=== PATIENT | male | born 1930 | race Two or more races ===

== ENCOUNTER 2016-12-27 06:13 | Emergency (ER) | payer MEDICARE, MEDICAID ==
[~2016-12-27] VITALS: Ht 177.8 cm; Wt 83.4 kg
[2016-12-27 06:23] VITALS: BP 152/69; PULSE 105; RESP 32; TEMP 99.9; O2SAT 99
[2016-12-27 07:01] VITALS: BP 103/65; PULSE 94; RESP 16; TEMP 102.7; O2SAT 97
[2016-12-27] MEDS ORDERED: SODIUM CHLOR 0.9% 1000 ML INJ 1,000 ML IV ONE (07:15)
[2016-12-27] MEDS ORDERED: IBUPROFEN 400 MG TAB PO ONE (07:15)
--- NOTE | 2016-12-27 07:19 | PD ---
HPI Chief Complaint: Cold / Flu Symptoms Time Seen by Provider: 07:02 Travel History International Travel<30 days: No Contact w/Intl Traveler<30days: [place] Traveled to: was in [place] at end of october Traveled to known affect area: No History of Present Illness HPI 86yo M with PMH of DM, Alzheimer's, HLD presents to the ED with c/o fever for 3 days. Pt returned from [place] Oct 28, 2016 and did not finish malaria prophylaxis. +Nonproductive cough today. Denies any chest pain, sob, n/v, abdominal pain, diarrhea, urinary complaints, headache, change in mental status , focal weakness or numbness. Pt's son is translating. PFSH Past Medical History Hx Anticoagulant Therapy: Yes (81 mg asa) High Cholesterol: Yes Diabetes: Yes (type 2) Patient Takes Glucophage: Yes Diminished Hearing: No Glaucoma: Yes Triglycerides - High: Yes Influenza Vaccination: No Social History Alcohol Use: No Tobacco Use: No (former) Substance Use: No Allergies-Medications (Allergen,Severity, Reaction): Coded Allergies: No Known Allergies (Unverified , 12/27/16) Reported Meds & Prescriptions Reported Meds & Active Scripts Active Acetaminophen 325 Mg Tab 325 Mg PO Q4-6H PRN 5 Days Ceftin (Cefuroxime Axetil) 500 Mg Tab 500 Mg PO BID 7 Days Reported Citracal Petites/Vitamin D (Calcium Citrate-Vitamin D) 200-250 Mg-Unit Tab 1 Tab PO BID Preservision Areds (Multiple Vitamins W/ Minerals) 1 Tab 1 Tab PO DAILY Aspirin 81 (Aspirin) 81 Mg Tabdr 81 Mg PO DAILY Vitamin B-12 (Cyanocobalamin) 1,000 Mcg Tab 1,000 Mcg PO DAILY Vitamin D (Cholecalciferol) 2,000 Unit Cap 2,000 Units PO DAILY Metformin (Metformin HCl) 500 Mg Tab 500 Mg PO BIDPC With meals Actos (Pioglitazone HCl) 30 Mg Tab 30 Mg PO DAILY Lipitor (Atorvastatin Calcium) 10 Mg Tab 10 Mg PO HS Dermotic Otic Drops (Fluocinolone Otic Drops) 0.01% Drops 1 Drop EACH EYE BID Dorzolamide-Timolol Opth Drops 22.3-6.8 Mg/Ml Soln 1 Drop EACH EYE BID Review of Systems Except as stated in HPI: all other systems reviewed are Neg Physical Exam Narrative GENERAL: 86yo M not in distress. SKIN: Warm and dry. HEAD: Atraumatic. Normocephalic. EYES: Pupils equal and round. No scleral icterus. No injection or drainage. ENT: Throat: Clear. TM wnl bilaterally. NECK: Trachea midline. No JVD. No nuchal rigidity. CARDIOVASCULAR: Regular rate and rhythm. No murmur appreciated. RESPIRATORY: No accessory muscle use. Clear to auscultation. Breath sounds equal bilaterally. GASTROINTESTINAL: Abdomen soft, non-tender, nondistended.No rebound tenderness or guarding. MUSCULOSKELETAL: No obvious deformities. No clubbing. No cyanosis. +Lower ext edema. NEUROLOGICAL: Awake and alert. No obvious cranial nerve deficits. Motor grossly within normal limits. Normal speech. Baseline mental status as per son. Data Data Last Documented VS Vital Signs Date Time Temp Pulse Resp B/P Pulse Ox O2 Delivery O2 Flow Rate FiO2 12/27/16 09:43 98.7 12/27/16 09:04 83 16 111/54 97 Room Air Orders Complete Blood Count With Diff (12/27/16 07:12) Basic Metabolic Panel (Bmp) (12/27/16 07:12) Prothrombin Time / Inr (Pt) (12/27/16 07:12) Act Partial Throm Time (Ptt) (12/27/16 07:12) Chest, Single Ap (12/27/16 ) Electrocardiogram (12/27/16 ) Urinalysis - C+S If Indicated (12/27/16 07:12) Influenzae A/B Antigen (12/27/16 07:12) Pathologist Smear Review (12/27/16 07:12) Blood Culture (12/27/16 07:12) Ibuprofen (Motrin) (12/27/16 07:15) Sodium Chlor 0.9% 1000 Ml Inj (Ns 1000 M (12/27/16 07:15) Lactic Acid Sepsis Protocol (12/27/16 07:39) Famotidine (Pepcid) (12/27/16 07:45) Malaria (12/27/16 08:06) Vancomycin Inj (Vancomycin Inj) (12/27/16 08:30) Piperacil-Tazo 3.375 Gm Premix (Zosyn 3. (12/27/16 08:30) Urine Culture (12/27/16 08:12) Ceftriaxone Inj (Rocephin Inj) (12/27/16 09:00) Labs Laboratory Tests Test 12/27/16 12/27/16 07:30 08:12 Prothrombin Time 11.1 SEC Prothromb Time International 1.0 RATIO Ratio Activated Partial 30.3 SEC Thromboplast Time Sodium Level 133 MEQ/L Potassium Level 4.1 MEQ/L Chloride Level 99 MEQ/L Carbon Dioxide Level 22.9 MEQ/L Anion Gap 11 MEQ/L Blood Urea Nitrogen 13 MG/DL Creatinine 1.10 MG/DL Estimat Glomerular Filtration 64 ML/MIN Rate Random Glucose 193 MG/DL Lactic Acid Level 2.3 mmol/L Calcium Level 8.2 MG/DL White Blood Count 11.3 TH/MM3 Red Blood Count 3.63 MIL/MM3 Hemoglobin 11.0 GM/DL Hematocrit 32.4 % Mean Corpuscular Volume 89.3 FL Mean Corpuscular Hemoglobin 30.3 PG Mean Corpuscular Hemoglobin 34.0 % Concent Red Cell Distribution Width 13.2 % Platelet Count 197 TH/MM3 Mean Platelet Volume 7.9 FL Neutrophils (%) (Auto) 91.3 % Lymphocytes (%) (Auto) 3.9 % Monocytes (%) (Auto) 4.1 % Eosinophils (%) (Auto) 0.4 % Basophils (%) (Auto) 0.3 % Neutrophils # (Auto) 10.4 TH/MM3 Lymphocytes # (Auto) 0.4 TH/MM3 Monocytes # (Auto) 0.5 TH/MM3 Eosinophils # (Auto) 0.0 TH/MM3 Basophils # (Auto) 0.0 TH/MM3 CBC Comment AUTO DIFF Differential Comment Blood Smear Pathologist Review Urine Collection Type CATH Urine Color YELLOW Urine Turbidity CLEAR Urine pH 6.0 Urine Specific [place] 1.011 Urine Protein 30 mg/dL Urine Glucose (UA) NEG mg/dL Urine Ketones NEG mg/dL Urine Occult Blood SMALL Urine Nitrite POS Urine Bilirubin NEG Urine Leukocyte Esterase MOD Urine RBC 0-3 /hpf Urine WBC 20-24 /hpf Urine Squamous Epithelial 0-5 /hpf Cells Urine Bacteria MOD /hpf Microscopic Urinalysis Comment CULTURE INDICATED Urine Collection Time 08:12 [facility] Medical Decision Making Medical Screen Exam Complete: Yes Emergency Medical Condition: Yes Interpretation(s) EKG: NSR 97bpm. LAD. Q wave III, aVF. TWI III. Differential Diagnosis Sepsis with no known source Pneumonia vs. UTI vs. malaria Narrative Course 86yo M with fever for 3 days. +Dry cough. Pt is febrile and tachycardic here, meets SIRS criteria. Pt has recently returned from [place] from mid October and did not finish course of malaria prophylaxis. No other complaints. Influenza negative. Pt given NS IVF. HR is now 80s. Pt is well appearing. No tenderness on abdominal exam. Labs reviewed, mild leukocytosis at 11.3. H/H mildly decreased at 11/32.4. Lactic acid mildly elevated at 2.3. BUN/ creatinine normal. Glucose 193. UA showed positive nitrite and moderate leukocyte. Initially ordered vanco, zosyn as empiric treatment for sepsis but it was not given and pt given ceftriaxone 1gm IV instead when UA came back positive. Advised pt for admission for urosepsis. However, pt refused to stay. Pt's son lives wiht him, is a physician and very reliable. He states that he will watch him and bring him back if any worsening symptoms. Pt will be given prescription for antibiotics and treat as outpatient since pt refused to be admitted. Strict return precautions given. Diagnosis Primary Impression: UTI (urinary tract infection) Qualified Code: N39.0 - Urinary tract infection with hematuria, site unspecified Patient Instructions: General Instructions Departure Forms: Tests/Procedures Additional Instructions: Please follow up with your PMD in 1-2 days. Return to the ED if symptoms worsen. Med/Other Pt SpecificInfo: Prescription(s) given Scripts Acetaminophen 325 Mg [id number] Mg PO Q4-6H PRN (FEVER) 5 Days Ref 0 Prov:Swetha Trinh DO 12/27/16 Cefuroxime (Ceftin)500 Mg [id number] Mg PO BID 7 Days Ref 0 Prov:Swetha Trinh DO 12/27/16 Disposition: 01 DISCHARGE HOME Condition: Stable Swetha Trinh DO Dec 27, 2016 07:19
[2016-12-27] MEDS ORDERED: DORZ2SOL15 EACH EYE (07:21)
[2016-12-27] MEDS ORDERED: VITA10002 PO (07:21)
[2016-12-27] MEDS ORDERED: CITRTAB8 PO (07:21)
[2016-12-27] MEDS ORDERED: VITA200013 PO (07:21)
[2016-12-27] MEDS ORDERED: ACTO30TA10 PO (07:21)
[2016-12-27] MEDS ORDERED: LIPI10TA PO (07:21)
[2016-12-27] MEDS ORDERED: METF500T PO (07:21)
[2016-12-27] MEDS ORDERED: ASPI-110 PO (07:21)
[2016-12-27] MEDS ORDERED: FLUO0.0124 EACH EYE (07:21)
[2016-12-27] MEDS ORDERED: OCUVTAB4 PO (07:21)
[2016-12-27 07:27] VITALS: BP 103/65; PULSE 94; RESP 16; TEMP 102.7; O2SAT 97
--- NOTE | 2016-12-27 07:33 | RADHPO ---
EXAM DATE/TIME: 12/27/2016 07:26 [facility] COMPARISON: No previous studies available for comparison. INDICATIONS : Fever, cough MEDICAL HISTORY : None. SURGICAL HISTORY : None. ENCOUNTER: Initial ACUITY: 2 days PAIN SCORE: 0/10 LOCATION: Bilateral chest FINDINGS: A single view of the chest demonstrates the lungs to be symmetrically aerated without evidence of mas s, infiltrate or effusion. The cardiomediastinal contours are unremarkable. Osseous structures are intact. Old healed right clavicle fracture. Degenerative changes of the thoracic spine. CONCLUSION: No acute intrathoracic disease. Peter Olvera MD on December 27, 2016 at 7:31 Board Certified Radiologist. This report was verified electronically.
[2016-12-27] MEDS ORDERED: FAMOTIDINE 20 MG TAB PO ONE (07:45)
[2016-12-27 07:49] LABS: AUTOMATED NEUTROPHIL # 10.4 TH/MM3 (1.8-7.7); BASOPHIL % 0.3 % (0.0-2.0); EOSINOPHIL % 0.4 % (0.0-4.0); HEMATOCRIT 32.4 % (39.0-51.0); LYMPH % 3.9 % (9.0-44.0); LYMPHOCYTE # 0.4 TH/MM3 (1.0-4.8); MEAN CELL VOLUME 89.3 FL (80.0-100.0); MEAN CORPUSCULAR HEMOGLOBIN 30.3 PG (27.0-34.0); MONO % 4.1 % (0.0-8.0); NEUT % 91.3 % (16.0-70.0); PLATELET COUNT 197 TH/MM3 (150-450); RED BLOOD COUNT 3.63 MIL/MM3 (4.50-5.90); RED CELL DISTRIBUTION WIDTH 13.2 % (11.6-17.2); WHITE BLOOD COUNT 11.3 TH/MM3 (4.0-11.0)
[2016-12-27 07:57] LABS: HEMO FLAGS AUTO DIFF
[2016-12-27 07:59] VITALS: BP 116/58; PULSE 93; RESP 16; O2SAT 97
[2016-12-27 08:01] LABS: POTASSIUM 4.1 MEQ/L (3.5-5.1)
[2016-12-27 08:04] LABS: BICARBONATE 22.9 MEQ/L (21.0-32.0)
[2016-12-27 08:05] LABS: APTT (PATIENT) 30.3 SEC (24.3-30.1); PROTHROMBIN TIME - PATIENT 11.1 SEC (9.8-11.6)
[2016-12-27 08:20] LABS: BLOOD, URINE SMALL (NEG); GLUCOSE,URINE NEG (NEG); KETONE, URINE NEG (NEG)
[2016-12-27 08:25] LABS: METHOD OF COLLECTION CATH; NITRITE,URINE POS (NEG); URINE COLOR YELLOW (YELLW/STRAW)
[2016-12-27 08:26] LABS: BACTERIA, URINE MOD /hpf; COMMENT (UR) CULTURE INDICATED; CULTURE IF INDICATED CULTURE INDICATED; RBC, URINE 0-3 /hpf (0-3); SQUAMOUS EPITHELIAL CELL URINE 0-5 /hpf (0-5)
[2016-12-27] MEDS ORDERED: PIPERACIL-TAZO 3.375 GM PREMIX 50 ML IV ONE (08:30)
[2016-12-27] MEDS ORDERED: VANCOMYCIN INJ 1,000 MG in SODIUM CHLOR 0.9% 250 ML INJ 250 ML IV ONE (08:30)
[2016-12-27] MEDS ORDERED: cefTRIAXone INJ 1,000 MG in SODIUM CHLORIDE 0.9% INJ 100 ML IV ONE (09:00)
[2016-12-27 09:04] VITALS: BP 111/54; PULSE 83; RESP 16; TEMP 98.4; O2SAT 97
[2016-12-27] MEDS ORDERED: CEFT500T3 PO (09:07)
[2016-12-27] MEDS ORDERED: ACET325T PO (09:07)
[2016-12-27 09:43] VITALS: TEMP 98.7
[2016-12-27 09:44] LABS: LACTIC ACID GHOST NOT REPORTABLE
--- NOTE | 2016-12-28 09:36 | EKG ---
Date Performed: 12/27/2016 Time Performed: 07:26:20 PTAGE: 86 years EKG: Sinus rhythm Inferior T wave changes are nonspecific Low QRS voltages in precordial leads Borderline ECG NO PREVIOUS TRACING DOCTOR: Krishna Nelson Interpretating Date/Time 12/28/2016 09:35:43
== END 2016-12-27 10:17 | disposition home or self-care (01) ==
LOC: PHED 06:13
DX: N39.0 Urinary tract infection, site not specified (principal); R94.31 Abnormal electrocardiogram [ECG] [EKG]; G30.9 Alzheimer's disease, unspecified; E11.9 Type 2 diabetes mellitus without complications; E78.00 Pure hypercholesterolemia, unspecified; Z79.01 Long term (current) use of anticoagulants; Z87.891 Personal history of nicotine dependence; B96.20 Unspecified Escherichia coli [E. coli] as the cause of diseases classified elsewhere
CPT/HCPCS: 71010; 80048; 81001; 83605; 85060; 85610; 85730; 87015; 87040; 87077; 87086; 87186; 87205; 87207; 87804; 93005; 96361; 96365; 99284; J0696; J7030

== ENCOUNTER 2017-08-12 15:09 | Emergency (ER) | payer MEDICARE, MEDICAID ==
[~2017-08-12] VITALS: Ht 175.3 cm; Wt 75.0 kg
[~2017-08-12 15:09] MED LIST: ACET325T PO; ACTO30TA10 PO; ASPI-110 PO; CEFT500T3 PO; CITRTAB8 PO; DORZ2SOL15 EACH EYE; FLUO0.0124 EACH EYE; LIPI10TA PO; METF500T PO; OCUVTAB4 PO; VITA10002 PO; VITA200013 PO
[2017-08-12 15:20] VITALS: BP 133/63; PULSE 91; RESP 16; TEMP 99.6; O2SAT 97
[2017-08-12] MEDS ORDERED: ARTISOL3 (15:31)
[2017-08-12] MEDS ORDERED: DOXY1CAP74 PO (15:31)
[2017-08-12] MEDS ORDERED: PIPERACIL-TAZO 3.375 GM PREMIX 50 ML IV ONE (15:45)
--- NOTE | 2017-08-12 15:50 | PD ---
HPI Chief Complaint: Fever Time Seen by Provider: 15:24 Travel History International Travel<30 days: No Contact w/Intl Traveler<30days: No Traveled to known affect area: No History of Present Illness HPI This patient brought in by his son who is a local physician. Patient has been having fever and chills for the last 2 days. He had a similar presentation in December 2016 and workup revealed Escherichia coli UTI. Patient has no respiratory symptoms. No cough or congestion or shortness of breath. No abdominal pain or vomiting or diarrhea. Severity is moderate. No alleviating factors. He does not have any exacerbating factors such as immunocompromise. He does have a degree of dementia. He speaks primarily [place] and his physician son is translating. PFSH Past Medical History Hx Anticoagulant Therapy: Yes (81 mg asa) High Cholesterol: Yes Diabetes: Yes (type 2) Patient Takes Glucophage: Yes Diminished Hearing: No Glaucoma: Yes Triglycerides - High: Yes Social History Alcohol Use: No Tobacco Use: No (former) Substance Use: No Allergies-Medications (Allergen,Severity, Reaction): Coded Allergies: No Known Allergies (Unverified , 08/12/17) Reported Meds & Prescriptions Reported Meds & Active Scripts Active Reported Artificial Tears (Dextran 70/Hypromellose) 1 Each [place] Doxycycline 40 Mg Cap 100 Mg PO DAILY Citracal Petites/Vitamin D (Calcium Citrate-Vitamin D) 200-250 Mg-Unit Tab 1 Tab PO BID Preservision Areds (Multiple Vitamins W/ Minerals) 1 Tab 1 Tab PO DAILY Aspirin 81 (Aspirin) 81 Mg Tabdr 81 Mg PO DAILY Vitamin B-12 (Cyanocobalamin) 1,000 Mcg Tab 1,000 Mcg PO DAILY Vitamin D (Cholecalciferol) 2,000 Unit Cap 2,000 Units PO DAILY Metformin (Metformin HCl) 500 Mg Tab 500 Mg PO BIDPC With meals Actos (Pioglitazone HCl) 30 Mg Tab 30 Mg PO DAILY Lipitor (Atorvastatin Calcium) 10 Mg Tab 10 Mg PO HS Dermotic Otic Drops (Fluocinolone Otic Drops) 0.01% Drops 1 Drop EACH EYE BID Dorzolamide-Timolol Opth Drops 22.3-6.8 Mg/Ml Soln 1 Drop EACH EYE BID Review of Systems General / Constitutional: Positive: Fever, Chills Eyes: No: Visual changes HENT: No: Headaches Cardiovascular: No: Chest Pain or Discomfort Respiratory: No: Shortness of Breath Gastrointestinal: No: Abdominal Pain Genitourinary: No: Dysuria Musculoskeletal: No: Pain Skin: No Rash Neurologic: No: Weakness Psychiatric: No: Depression Endocrine: No: Polydipsia Hematologic/Lymphatic: No: Easy Bruising Physical Exam Narrative GENERAL: Well-nourished, well-developed patient in no apparent distress. SKIN: Focused skin assessment reveals no rash and nodules. Skin is Warm and dry. Patient has some atypical hypopigmented firm nontender skin lesions in his scrotum. This is not involving the testicle. Patient indicates they've been there a long time. No fluctuance or drainage. HEAD: Atraumatic. Normocephalic. EYES: Pupils equal and round. No scleral icterus. No injection or drainage. ENT: No nasal bleeding or discharge. Mucous membranes pink and moist. Throat clear NECK: Trachea midline. No JVD. No meningeal signs CARDIOVASCULAR: Regular rate and rhythm. No murmur appreciated. RESPIRATORY: No accessory muscle use. Clear to auscultation. Breath sounds equal bilaterally. GASTROINTESTINAL: Abdomen soft, non-tender, nondistended. Hepatic and splenic margins not palpable. MUSCULOSKELETAL: No obvious deformities. No clubbing. No cyanosis. No edema. NEUROLOGICAL: Awake and alert. No obvious cranial nerve deficits. Motor grossly within normal limits. Normal speech. PSYCHIATRIC: Appropriate mood and affect; insight and judgment are somewhat reduced from dementia Data Data Last Documented VS Vital Signs Date Time Temp Pulse Resp B/P (MAP) Pulse Ox O2 Delivery O2 Flow Rate FiO2 08/12/17 16:49 72 20 128/69 (88) 98 08/12/17 15:20 99.6 Orders Orders Complete Blood Count With Diff (08/12/17 15:39) Comprehensive Metabolic Panel (08/12/17 15:39) Lactic Acid Sepsis Protocol (08/12/17 15:39) Urinalysis - C+S If Indicated (08/12/17 15:39) Blood Culture (08/12/17 15:39) Chest, Single Ap (08/12/17 15:39) Blood Glucose (08/12/17 15:39) Ecg Monitoring (08/12/17 15:39) Iv Access Insert/Monitor (08/12/17 15:39) Oximetry (08/12/17 15:39) Piperacil-Tazo 3.375 Gm Premix (Zosyn 3. (08/12/17 15:45) Gentamicin Inj (Gentamicin Inj) (08/12/17 17:00) Labs Laboratory Tests Test 08/12/17 16:15 08/12/17 16:20 Urine Color YELLOW Urine Turbidity CLEAR Urine pH 6.5 Urine Specific [place] 1.015 Urine Protein NEG mg/dL Urine Glucose (UA) 500 mg/dL Urine Ketones NEG mg/dL Urine Occult Blood NEG Urine Nitrite NEG Urine Bilirubin NEG Urine Leukocyte Esterase NEG Urine RBC 0-3 /hpf Urine WBC 0-2 /hpf Urine Squamous Epithelial Cells 0-5 /hpf Microscopic Urinalysis Comment CATH-CULT NOT IND Lactic Acid Level 1.4 mmol/L MDM Medical Decision Making Medical Screen Exam Complete: Yes Emergency Medical Condition: Yes Medical Record Reviewed: Yes Differential Diagnosis UTI, sepsis, pyelonephritis, flu syndrome Narrative Course I have reviewed the patient's electronic medical record. Reviewed his workup from December 2016 IV placed 2 blood cultures obtained I gave him a dose of IV Zosyn CBC Metabolic profile LFTs Urinalysis Lactate I reviewed his chest x-ray I advised his son to have the scrotal skin lesions evaluated by his physician and discuss biopsy to rule out a skin cancer. Diagnosis Primary Impression: Febrile illness, acute Additional Impression: UTI (urinary tract infection) Qualified Codes: N30.00 - Acute cystitis without hematuria Additional Instructions: The patient was advised to follow up with their physician and return if they worsen. Med/Other Pt SpecificInfo: Prescription(s) given Scripts Nitrofurantoin Monohydrate Macrocrystals (Macrobid) 100 Mg Capsule 100 MG PO BID for Infection, #28 CAP 0 Refills Prov: Donato Millan MD 08/12/17 Disposition: DISCHARGE HOME Condition: Stable Donato Millan MD Aug 12, 2017 15:50
--- NOTE | 2017-08-12 16:35 | RADRPT ---
EXAM DATE/TIME: 08/12/2017 16:00 [facility] COMPARISON: CHEST SINGLE AP, December 27, 2016, 7:26. INDICATIONS : Fever and short of breath this morning. MEDICAL HISTORY : None. SURGICAL HISTORY : None. ENCOUNTER: Initial ACUITY: 1 day PAIN SCORE: 0/10 LOCATION: Bilateral chest FINDINGS: The heart is at the upper limits of normal in size. There are diffuse chronic appearing interstitial changes. No definite consolidating pneumonia seen. The exam is stable compared to previous of 12/27/16 . CONCLUSION: 1. Chronic appearing interstitial changes. 2. Stable exam compared to previous. Pilo Briones MD on August 12, 2017 at 16:33 Board Certified Radiologist. This report was verified electronically.
[2017-08-12 16:40] VITALS: O2SAT 97
[2017-08-12 16:40] LABS: BLOOD, URINE NEG (NEG); GLUCOSE,URINE 500 mg/dL (NEG); KETONE, URINE NEG (NEG); NITRITE,URINE NEG (NEG); PH, URINE 6.5 (5.0-8.5)
[2017-08-12 16:49] VITALS: BP 128/69; PULSE 72; RESP 20; O2SAT 98
[2017-08-12 16:53] LABS: URINE COLOR YELLOW (YELLW/STRAW)
[2017-08-12 16:54] LABS: RBC, URINE 0-3 /hpf (0-3)
[2017-08-12 16:55] LABS: COMMENT (UR) CATH-CULT NOT IND; CULTURE IF INDICATED CATH CULTURE NOT IND; SQUAMOUS EPITHELIAL CELL URINE 0-5 /hpf (0-5); WBC, URINE 0-2 /hpf (0-5)
[2017-08-12] MEDS ORDERED: GENTAMICIN SULFATE 80 MG/2 ML VIAL IM ONE (17:00)
[2017-08-12] MEDS ORDERED: MACR100C2 PO (17:03)
[2017-08-12 17:30] LABS: AUTOMATED NEUTROPHIL # 5.8 TH/MM3 (1.8-7.7); BASOPHIL % 0.3 % (0.0-2.0); EOSINOPHIL # 0.1 TH/MM3 (0-0.4); EOSINOPHIL % 1.1 % (0.0-4.0); HEMATOCRIT 35.2 % (39.0-51.0); LYMPH % 12.9 % (9.0-44.0); LYMPHOCYTE # 0.9 TH/MM3 (1.0-4.8); MEAN CELL VOLUME 89.5 FL (80.0-100.0); MEAN CORPUSCULAR HEMOGLOBIN 30.5 PG (27.0-34.0); MEAN CORPUSCULAR HGB CONC 34.1 % (32.0-36.0); MONO % 8.3 % (0.0-8.0); NEUT % 77.4 % (16.0-70.0); PLATELET COUNT 171 TH/MM3 (150-450); RED BLOOD COUNT 3.93 MIL/MM3 (4.50-5.90); RED CELL DISTRIBUTION WIDTH 14.1 % (11.6-17.2); WHITE BLOOD COUNT 7.4 TH/MM3 (4.0-11.0)
[2017-08-12 17:31] LABS: HEMO FLAGS AUTO DIFF
[2017-08-12 17:38] LABS: CHLORIDE 101 MEQ/L (98-107); POTASSIUM 4.4 MEQ/L (3.5-5.1); SODIUM (NA) 133 MEQ/L (136-145)
[2017-08-12 17:40] LABS: EOSINOPHILS 2 % (0-4); METAMYELOCYTES 1 % (0-1); PLATELET ESTIMATE SMEAR NORMAL (NORMAL); PLATELET MORPHOLOGY NORMAL (NORMAL); POLYS (SEG NEUTROPHILS) 80 % (16-70); SCAN/DIFF FINAL DIFF MANUAL; WBC DIFF SAMPLE 100
[2017-08-12 17:42] LABS: ANION GAP 7 MEQ/L (5-15); BICARBONATE 25.4 MEQ/L (21.0-32.0); BLOOD UREA NITROGEN 15 MG/DL (7-18)
[2017-08-12 17:45] LABS: ALT (GPT) 17 U/L (12-78); AST (GOT) 15 U/L (15-37); GLOMERULAR FILTRATION RATE 71 ML/MIN (>89)
[2017-08-12 17:46] LABS: TOTAL BILIRUBIN ADULT 0.5 MG/DL (0.2-1.0)
[2017-08-12 17:48] LABS: ALKALINE PHOSPHATASE 49 U/L (45-117)
== END 2017-08-12 18:17 | disposition home or self-care (01) ==
LOC: PHED 15:09
DX: N30.00 Acute cystitis without hematuria (principal)
CPT/HCPCS: 71010; 80053; 81001; 83605; 85007; 85027; 87040; 96372; 99284; J1580